=== PATIENT | female | born 1970 | race African-American/Black ===

== ENCOUNTER 2024-10-09 11:25 | Emergency (ER) | payer MEDICARE, MEDICAID ==
[~2024-10-09] VITALS: Ht 172.7 cm; Wt 95.0 kg
[2024-10-09] MEDS: IPRATROPIUM/ALBUTEROL 0.5-3(2.5)MG/3ML NEB HHN ONE (12:08)
[2024-10-09 12:09] VITALS: PULSE 64; RESP 13; O2SAT 100
[2024-10-09 12:49] LABS: BASOPHILS % 0.7 % (0.0-2.0); EOSINOPHILS % 6.4 % (0.0-5.0); HEMATOCRIT. 37.3 % (36.0-48.0); HEMOGLOBIN. 11.7 g/dL (12.0-16.0); LYMPHOCYTES % 37.5 % (20.0-50.0); MEAN CORPUSCULAR HEMOGLOBIN 25.1 pg (28.0-32.0); MEAN CORPUSCULAR HGB CONC 31.2 g/dL (31.0-37.0); MEAN CORPUSCULAR VOLUME 80.3 fL (81.0-99.0); MEAN PLATELET VOLUME 8.7 fl (7.4-10.4); MONOCYTES % 10.4 % (2.0-8.0); PLATELET 178 x1000/uL (130-400); RED BLOOD CELL COUNT 4.65 mill/uL (4.2-5.4); WHITE BLOOD COUNT 4.6 x1000/uL (4.5-11.0)
[2024-10-09] MEDS: METOCLOPRAMIDE HCL 10MG/2ML VIAL IV ONE (12:53)
[2024-10-09] MEDS: DIPHENHYDRAMINE 50MG/ML VIAL IV ONE (12:54)
[2024-10-09] MEDS: KETOROLAC 30MG/ML VIAL IV ONE (12:54)
[2024-10-09 12:59] LABS: CARBON DIOXIDE 27 mEq/L (21-32); CHLORIDE 107 mEq/L (98-107); SODIUM 145 mEq/L (136-145)
[2024-10-09 13:00] LABS: CALCIUM 10.1 mg/dL (8.7-10.4)
[2024-10-09 13:04] LABS: CREATININE 1.3 mg/dL (0.6-1.0)
[2024-10-09 13:05] LABS: GLUCOSE 110 mg/dL (70-105); TROPONIN I HIGH SENSITIVITY 4 ng/L (3.0-34); UREA NITROGEN BLOOD 12 mg/dL (9-23)
[2024-10-09 13:06] LABS: ALANINE AMINOTRANSFERASE 18 IU/L (10-49); ALBUMIN 4.6 g/dL (3.2-4.8); ASPARTATE AMINOTRANSFERASE 27 IU/L (<34)
[2024-10-09 13:07] LABS: BILIRUBIN DIRECT 0.3 mg/dL (<=3.0); BILIRUBIN TOTAL 0.9 mg/dL (0.1-1.0); PROTEIN TOTAL 7.6 g/dL (6.0-8.3); PROTHROMBIN TIME 11.6 sec (9.6-11.0)
[2024-10-09 14:04] LABS: CLARITY URINE CLOUDY (CLEAR); COLOR URINE YELLOW (YELLOW); GLUCOSE URINE NEGATIVE (NEGATIVE); KETONES URINE 1+ (NEGATIVE); LEUKOCYTE ESTERASE URINE 1+ (NEGATIVE); NITRITE URINE NEGATIVE (NEGATIVE); OCCULT BLOOD URINE NEGATIVE (NEGATIVE); PROTEIN URINE 1+ (NEGATIVE); SPECIFIC GRAVITY URINE 1.026 (1.005-1.030)
[2024-10-09 14:32] LABS: BACTERIA URINE 1+; MUCUS URINE 1+ /lpf (< = 2+); SQUAMOUS EPITHELIAL CELL URINE 2+ /lpf (RARE/1+)
[2024-10-09 14:35] LABS: RBC URINE 0-2 /hpf (0-2); WBC URINE 0-2 /hpf (0-2)
[2024-10-09] MEDS ORDERED: SODIUM CHLORIDE 0.9% 1,000 ML IV ONE (14:45)
[2024-10-09] MEDS ORDERED: ALBU18HF2 IH (15:20)
[2024-10-09] MEDS ORDERED: P50 MT (15:20)
[2024-10-09] MEDS ORDERED: AZIT250T12 MT (15:20)
[2024-10-09] MEDS ORDERED: IBUP-2029 MT (15:21)
[2024-10-09 16:14] VITALS: BP 149/80; PULSE 60; RESP 13; TEMP 36.94740; O2SAT 98
[2024-10-10] MEDS ORDERED: ARIP10TA86 PO (09:11)
[2024-10-10] MEDS ORDERED: PREG200C29 PO (09:11)
[2024-10-10] MEDS ORDERED: ONDA4TAB50 PO (09:11)
[2024-10-10] MEDS ORDERED: LEVO125T8 PO (09:11)
[2024-10-10] MEDS ORDERED: LEVE10006 PO (09:11)
[2024-10-10] MEDS ORDERED: METF-414 PO (09:11)
[2024-10-10] MEDS ORDERED: SPIR25TA6 PO (09:11)
[2024-10-10] MEDS ORDERED: RIVA20TA PO (09:25)
[2024-10-10] MEDS ORDERED: CYCL5TAB3 PO (09:25)
[2024-10-10] MEDS ORDERED: ISOS30TA11 PO (09:25)
[2024-10-10] MEDS ORDERED: VENL150T3 PO (09:25)
[2024-10-10] MEDS ORDERED: TRAZ-251 PO (09:25)
[2024-10-10] MEDS ORDERED: ALBU90AE3 INH (09:25)
[2024-10-10] MEDS ORDERED: HYDR200T35 PO (09:25)
[2024-10-10] MEDS ORDERED: CARV3.1242 PO (09:25)
[2024-10-10] MEDS ORDERED: PRAZ2CAP2 PO (09:26)
[2024-10-10] MEDS ORDERED: MORP15TA67 PO (09:28)
== END 2024-10-09 16:27 | disposition home or self-care (01) ==
LOC: ER 11:41
DX: J20.9 Acute bronchitis, unspecified (principal); G43.909 Migraine, unspecified, not intractable, without status migrainosus; E11.9 Type 2 diabetes mellitus without complications; Z86.73 Personal history of transient ischemic attack (TIA), and cerebral infarction without residual deficits; Z88.5 Allergy status to narcotic agent; Z90.49 Acquired absence of other specified parts of digestive tract
CPT/HCPCS: 99284; 96374; 70450; 76700; 96375; 71045; 80076; 80048; 81003; 83880; 85025; 85610; 84484; 36415; 93005; J1885; J1200; J2765; J7030